=== PATIENT | female | born 1990 | race Caucasian/White ===

== ENCOUNTER 2021-12-15 20:49 | Emergency (ER) | payer SELFPAY ==
[~2021-12-15 20:49] MED LIST: AC325T PO; AGM875T PO; BENZ56AE TP; BUTA1TAB55 PO; CEPH-38 PO; CODE-54 PO; CPR500T PO; DCS100C PO; FERR-57 PO; FRS325T PO; IBUP-792 PO; Ibuprofen PO; ONDA8TAB13 PO; ONDA8TAB9 PO; PHEN200T27 PO; POLY119P PO; PREN1TAB71 PO
--- NOTE | 2021-12-15 21:17 | ED GU-Female ---
General Chief Complaint: OB < 20 WEEKS Stated Complaint: OB,ABNORMAL BLEEDING Nursing Triage Note: Pt states she is 5-6 weeks and has vaginal bleeding that started this afternoon and has increased over the past few hours. History of Present Illness Date Seen by Provider: Dec 15, 2021 Time Seen by Provider: 21:05 Initial Comments 31-year-old female is [id number], is here with complaints of vaginal bleeding which began today and became worse in the evening. Patient states that she is wearing a panty liner and has not changed it since earlier today. Patient denies cramping, fever, nausea and vomiting, diarrhea, hematuria, dysuria. Patient has not seen MEDICAL LABORATORY TECHNICIAN yet, and the only test she has done is grsk-kna-eygrthn drugstore tests. Allergies and Home Medications Allergies Coded Allergies: No Known Drug Allergies (Unverified , 10/06/11) Patient Home Medication List Home Medication List Reviewed: Yes Acetaminophen/Codeine (Tylenol W/Codeine #3 Tablet) 1 Tab Tablet, 1-2 TAB PO Q4H PRN for MODERATE TO SEVERE PAIN Prescribed by: PAULINA MARTINEZ on 02/07/14757 Benzocaine/Menthol (Dermoplast [place]) 56 Ml Aerosol, 0 ML TP UD PRN for PAIN Prescribed by: PAULINA MARTINEZ on 02/07/14757 Docusate Sodium (Colace) 100 Mg Cap, 100 MG PO BID Prescribed by: PAULINA MARTINEZ on 02/07/14757 Ferrous Sulfate (Feosol Tab) 325 Mg Tab, 325 MG PO DAILY@08 Prescribed by: PAULINA MARTINEZ on 02/07/14757 Vit/Fe Fumarate/Fa ( Vitamin Tablet) 1 Each Tablet, 1 EACH PO DAILY, (Reported) Entered as Reported by: MIGDALIA GONZALEZ on 01/31/14 1518 [Ibuprofen] 600 MG TAB, 600 MG PO Q6H Prescribed by: PAULINA MARTINEZ on 02/07/14 075 Review of Systems Review of Systems Constitutional: no symptoms reported EENTM: no symptoms reported Respiratory: no symptoms reported Cardiovascular: no symptoms reported Gastrointestinal: no symptoms reported : Yes LMP: Nov 07, 2021 Musculoskeletal: no symptoms reported Skin: no symptoms reported Psychiatric/Neurological: No Symptoms Reported Endocrine: No Symptoms Reported Past Dutjulz-Dwxwcu-Gikzru Hx Patient Social History Tobacco Use?: No Use of E-Cig and/or Vaping dev: No Substance use?: No Alcohol Use?: No Pt feels they are or have been: No Immunizations Up To Date Tetanus Booster (TDap): Less than 5yrs PED Vaccines UTD: No Past Medical History Reproductive Disorders: No Female Reproductive Disorders: Denies Sexually Transmitted Disease: No HIV/AIDS: No Family Medical History Patient reports no known family medical history. No Pertinent Family Hx Physical Exam Vital Signs Vital Signs - First Documented 12/15/21 21:09 Temp 36.8 Pulse 105 Resp 20 B/P (MAP) 149/88 (108) Pulse Ox 100 O2 Delivery Room Air Capillary Refill : Less Than 3 Seconds Height, Weight, BMI Height: 5'2.00" Weight: 145lbs. oz. 65.609804kz; BMI Method:Stated General Appearance: WD/WN, no apparent distress HEENT: PERRL/EOMI Cardiovascular: normal peripheral pulses, regular rate, rhythm Respiratory: chest non-tender, lungs clear Gastrointestinal: normal bowel sounds, non tender, soft Pelvic: normal external exam, normal adnexa, no cerv. motion tender, no masses, vaginal bleeding Back: normal inspection, no CVA tenderness, no vertebral tenderness Neurologic/Psychiatric: alert, normal mood/affect, oriented x 3 Skin: normal color Progress/Results/Core Measures Suspected Sepsis SIRS Temperature: Pulse: 105 Respiratory Rate: 20 Laboratory Tests 12/15/21 22:43: White Blood Count 8.5 Blood Pressure 149 /88 Mean: 108 Laboratory Tests 12/15/21 22:43: Creatinine 0.59L, Platelet Count 309, Total Bilirubin 0.2 Results/Orders Lab Results Laboratory Tests Test 12/15/21 22:43 Range/Units White Blood Count 8.5 4.3-11.0 10^3/uL Red Blood Count 4.56 3.80-5.11 10^6/uL Hemoglobin 13.8 11.5-16.0 g/dL Hematocrit 40 35-52 % Mean Corpuscular Volume 88 80-99 fL Mean Corpuscular Hemoglobin 30 25-34 pg Mean Corpuscular Hemoglobin Concent 34 32-36 g/dL Red Cell Distribution Width 12.6 10.0-14.5 % Platelet Count 309 130-400 10^3/uL Mean Platelet Volume 9.9 9.0-12.2 fL Immature Granulocyte % (Auto) 0 % Neutrophils (%) (Auto) 58 42-75 % Lymphocytes (%) (Auto) 32 12-44 % Monocytes (%) (Auto) 8 0-12 % Eosinophils (%) (Auto) 1 0-10 % Basophils (%) (Auto) 1 0-10 % Neutrophils # (Auto) 4.9 1.8-7.8 10^3/uL Lymphocytes # (Auto) 2.7 1.0-4.0 10^3/uL Monocytes # (Auto) 0.7 0.0-1.0 10^3/uL Eosinophils # (Auto) 0.1 0.0-0.3 10^3/uL Basophils # (Auto) 0.0 0.0-0.1 10^3/uL Immature Granulocyte # (Auto) 0.0 0.0-0.1 10^3/uL Urine Color YELLOW Urine Clarity SL CLOUDY Urine pH 7.0 5-9 Urine Specific [place] 1.020 1.016-1.022 Urine Protein NEGATIVE NEGATIVE Urine Glucose (UA) NEGATIVE NEGATIVE Urine Ketones NEGATIVE NEGATIVE Urine Nitrite NEGATIVE NEGATIVE Urine Bilirubin NEGATIVE NEGATIVE Urine Urobilinogen 1.0 < = 1.0 MG/DL Urine Leukocyte Esterase NEGATIVE NEGATIVE Urine RBC (Auto) 3+ H NEGATIVE Urine RBC >100 H /HPF Urine WBC RARE /HPF Urine Squamous Epithelial Cells 2-5 /HPF Urine Crystals NONE /LPF Urine Bacteria TRACE /HPF Urine Casts NONE /LPF Urine Mucus LARGE H /LPF Urine Culture Indicated NO Urine Test NEGATIVE NEGATIVE Sodium Level 142 135-145 MMOL/L Potassium Level 3.6 3.6-5.0 MMOL/L Chloride Level 106 98-107 MMOL/L Carbon Dioxide Level 25 21-32 MMOL/L Anion Gap 11 5-14 MMOL/L Blood Urea Nitrogen 11 7-18 MG/DL Creatinine 0.59 L 0.60-1.30 MG/DL Estimat Glomerular Filtration Rate 125 BUN/Creatinine Ratio 19 Glucose Level 107 H 70-105 MG/DL Calcium Level 9.6 8.5-10.1 MG/DL Corrected Calcium 8.5-10.1 MG/DL Total Bilirubin 0.2 0.1-1.0 MG/DL Aspartate Amino Transf (AST/SGOT) 24 5-34 U/L Alanine Aminotransferase (ALT/SGPT) 29 0-55 U/L Alkaline Phosphatase 52 40-136 U/L Total Protein 7.7 6.4-8.2 GM/DL Albumin 4.8 H 3.2-4.5 GM/DL Human Chorionic Gonadotropin, Quant < 5 <5 MIU/ML My Orders Orders - ELIA BROOKE MD Cbc With Automated Diff (12/15/21 22:09) Hcg,Quantitative (12/15/21 22:09) Comprehensive Metabolic Panel (12/15/21 22:09) Ua Culture If Indicated (12/15/21 22:11) Hcg,Qualitative Urine (12/16/21 00:09) Vital Signs/I&O 12/15/21 21:09 Temp 36.8 Pulse 105 Resp 20 B/P (MAP) 149/88 (108) Pulse Ox 100 O2 Delivery Room Air Capillary Refill : Less Than 3 Seconds Blood Pressure Mean: 108 Progress Note : Progress Note 1. VAGINAL BLEEDING: MENSTRUATION - CBC: Hb is stable - CMP: unremarkable - UA: RBC+ - Pt has not seen her [employer]BEST[employer] ABATEMENT TECHNICIAN yet, and she has only had an OTC positive test - Quantitative HCG is <5 - Urine Qualitative HCG: negative - Follow up with OB-HYDROGRAPHIC ENGINEER Departure Impression Primary Impression: Menstrual bleeding problem Disposition: 01 HOME, SELF-CARE Condition: Stable Departure-Patient Inst. Referrals: NO,LOCAL PHYSICIAN (PCP/Family) Primary Care Physician Patient Instructions: Menstruation, Menstrual Cramps Add. Discharge Instructions: - Quantitative HCG is <5 - Urine Qualitative HCG: negative - Follow up with OB-HYDROGRAPHIC ENGINEER All discharge instructions reviewed with patient and/or family. Voiced understanding. ELIA BROOKE MD Dec 15, 2021 21:17
[2021-12-15 22:57] LABS: BASOPHILS % (AUTO) 1 % (0-10); EOSINOPHILS # (AUTO) 0.1 10^3/uL (0.0-0.3); EOSINOPHILS % (AUTO) 1 % (0-10); HEMATOCRIT 40 % (35-52); HEMOGLOBIN 13.8 g/dL (11.5-16.0); LYMPHOCYTES # (AUTO) 2.7 10^3/uL (1.0-4.0); LYMPHOCYTES % (AUTO) 32 % (12-44); MEAN CORPUSCULAR HEMOGLOBIN 30 pg (25-34); MEAN CORPUSCULAR HGB CONC 34 g/dL (32-36); MEAN CORPUSCULAR VOLUME 88 fL (80-99); MEAN PLATELET VOLUME 9.9 fL (9.0-12.2); MONOCYTES # (AUTO) 0.7 10^3/uL (0.0-1.0); MONOCYTES % (AUTO) 8 % (0-12); NEUTROPHILS # (AUTO) 4.9 10^3/uL (1.8-7.8); NEUTROPHILS % (AUTO) 58 % (42-75); PLATELET COUNT 309 10^3/uL (130-400); WHITE BLOOD COUNT 8.5 10^3/uL (4.3-11.0)
[2021-12-15 23:12] LABS: BILIRUBIN,URINE NEGATIVE (NEGATIVE); CLARITY,URINE SL CLOUDY; COLOR,URINE YELLOW; GLUCOSE, URINE (UA) NEGATIVE (NEGATIVE); KETONES,URINE NEGATIVE (NEGATIVE); LEUKOCYTE ESTERASE ,URINE NEGATIVE (NEGATIVE); NITRITE,URINE NEGATIVE (NEGATIVE); PROTEIN,URINE NEGATIVE (NEGATIVE)
[2021-12-15 23:28] LABS: RBC,URINE >100 /HPF; WBC,URINE RARE /HPF
[2021-12-15 23:29] LABS: BACTERIA,URINE TRACE /HPF
[2021-12-15 23:40] LABS: BUN/CREATININE RATIO 19; CARBON DIOXIDE 25 MMOL/L (21-32); CHLORIDE 106 MMOL/L (98-107); CREATININE SERUM 0.59 MG/DL (0.60-1.30); GFR ESTIMATED 125; POTASSIUM 3.6 MMOL/L (3.6-5.0); SODIUM 142 MMOL/L (135-145)
[2021-12-15 23:41] LABS: ALANINE AMINOTRANSFERASE 29 U/L (0-55); ALBUMIN 4.8 GM/DL (3.2-4.5); ALKALINE PHOSPHATASE 52 U/L (40-136); BILIRUBIN,TOTAL 0.2 MG/DL (0.1-1.0); CALCIUM 9.6 MG/DL (8.5-10.1); GLUCOSE 107 MG/DL (70-105); TOTAL PROTEIN 7.7 GM/DL (6.4-8.2)
[2021-12-16 00:39] VITALS: BP 138/80
== END 2021-12-16 00:40 | disposition home or self-care (01) ==
LOC: EDUNIT# 20:49 → ER FS 20:51
DX: N93.9 Abnormal uterine and vaginal bleeding, unspecified (principal); Z28.310 Unvaccinated for COVID-19
CPT/HCPCS: 36415; 80053; 81000; 84702; 84703; 85025; 86900; 86901

== ENCOUNTER → 2022-08-01 | Outpatient (CLI) | payer MEDICAID ==
--- NOTE | 2022-08-01 12:17 | Diagnostic Imaging Report ---
INDICATION: Supervision of normal . Anatomy scan. TECHNIQUE: Multiple real-time grayscale images were obtained over the gravid uterus. COMPARISON: None FINDINGS: A single live intrauterine gestation is visualized in cephalic presentation. heart tones measure 144 bpm. The placenta is anterior and not low-lying. The ISAIAH appears normal although no dedicated measurements were performed. The cervical length measures 4.6 cm. The kidneys, bladder, ventricles, four-chamber heart, three-vessel cord, cord insertion, and spine are visualized and have a normal appearance. The stomach and profile are not well seen due to position. Views of the adnexa demonstrate no evidence of mass. Biometrical measurements are as follows: Biparietal 5.11 cm, age 21 weeks 4 days. Head circumference 19.70 cm, age 22 weeks 0 days. Abdominal circumference 15.38 cm, age 20 weeks 5 days. Femur length 3.56 cm, age 21 weeks 2 days. Sonographic estimate age: 21 weeks 3 days. Sonographic estimated date of delivery: 12/09/2022. Estimated Weight: 393 gm (+/- 58 gm). LMP percentile: 19%. heart rate: 144 beats per minute. number: 1 of 1. IMPRESSION: 1. Single live intrauterine gestation measuring 21 weeks 3 days with an estimated due date of 12/09/2022. These are within range of the clinical dates. 2. Suboptimal visualization of the stomach in profile due to position. The remainder of the anatomy is seen and has a normal appearance. Recommend followup as indicated. Dictated by: Dictated on workstation # [id number]
== END ==
LOC: RAD FS 08:50
PROVIDERS: ATTEND Nurse Practitioner Women's Health
DX: Z34.02 Encounter for supervision of normal first pregnancy, second trimester (principal); Z3A.21 21 weeks gestation of pregnancy
CPT/HCPCS: 76805

== ENCOUNTER → 2022-11-17 | Outpatient (CLI) | payer MEDICAID ==
--- NOTE | 2022-11-17 13:10 | Diagnostic Imaging Report ---
INDICATION: Evaluate biophysical profile. FINDINGS: Biophysical profile was performed. Overall biophysical profile score is normal 8/8. heart rate was recorded at 155 BPM. presentation is cephalic. Amniotic fluid index is 10.6 cm. IMPRESSION: Normal biophysical profile score of 8/8. Dictated by: Dictated on workstation # [id number]
== END ==
LOC: RAD 12:16
PROVIDERS: ATTEND Nurse Practitioner Women's Health
DX: Z33.1 Pregnant state, incidental (principal)
CPT/HCPCS: 76819

== ENCOUNTER 2022-11-30 09:56 | Inpatient (IN) | payer MEDICAID ==
[2022-11-30] VITALS (52 sets, daily range): BP systolic 61–129; BP diastolic 35–81
[2022-11-30] MEDS ORDERED: AMPICILLIN (IV) 2,000 MG in NS (IVPB) 50 ML 50 ML IV SCH (10:13)
[2022-11-30] MEDS ORDERED: MINERAL OIL 30 ML UDC TOP PRN (10:15)
[2022-11-30] MEDS ORDERED: LACTATED RINGERS 1,000 ML IV ONE ×2 (10:16→13:45)
--- NOTE | 2022-11-30 10:34 | History & Physical-OB ---
OB - Chief Complaint & HPI Date/Time Date of Admission: Date of Admission: Nov 30, 2022 at 09:56 Date seen by a Provider: Nov 30, 2022 Time Seen by a Provider: 09:30 Chief Complaint/History OB-Reason for Admission/Chief: Onset of Labor Hx : 3 Hx Para: 2 Expected Date of Delivery: Dec 08, 2022 Gestational Age in Weeks: 38 Gestational Age in Days: 6 Indication for induction: medical complication (gestational diabetes) Admission Nurse Assessment Rev: Yes Other O+ GBS + RImm Hep b/c neg HIV neg +GDMA2 Allergies and Home Medications Allergies Coded Allergies: No Known Drug Allergies (Unverified , 10/06/11) Patient Home Medication List Home Medication List Reviewed: Yes Acetaminophen/Codeine (Tylenol W/Codeine #3 Tablet) 1 Tab Tablet, 1-2 TAB PO Q4H PRN for MODERATE TO SEVERE PAIN Prescribed by: PAULINA MARTINEZ on 02/07/14757 Last Action: Reviewed Benzocaine/Menthol (Dermoplast [place]) 56 Ml Aerosol, 0 ML TP UD PRN for PAIN Prescribed by: PAULINA MARTINEZ on 02/07/14757 Last Action: Reviewed Docusate Sodium (Colace) 100 Mg Cap, 100 MG PO BID Prescribed by: PAULINA MARTINEZ on 02/07/14757 Last Action: Reviewed Ferrous Sulfate (Feosol Tab) 325 Mg Tab, 325 MG PO DAILY@08 Prescribed by: PAULINA MARTINEZ on 02/07/14757 Last Action: Reviewed Glyburide (Glyburide) 2.5 Mg Tablet, 2.5 MG PO DAILY, (Reported) Entered as Reported by: JACK MOELLER on 11/30/221758 Last Action: New Order Vit/Fe Fumarate/Fa ( Vitamin Tablet) 1 Each Tablet, 1 EACH PO DAILY, (Reported) Entered as Reported by: MIGDALIA GONZALEZ on 01/31/14 151 Last Action: Reviewed [Ibuprofen] 600 MG TAB, 600 MG PO Q6H Prescribed by: PAULINA MARTINEZ on 02/07/14757 Last Action: Reviewed OB - History Hx of Present Care: Yes Ultrasounds: Normal mid trimester US Obstetrical Complications: Gestational Diabetes Medical Complications: None Information Induced Hypertension: No Maternal Gestational Diabetes: Yes Hemorrhage: No Obstetrical History Hx : 3 Hx Para: 2 Hx # Term Pregnancies: 2 Hx # Pregnancies: 0 Number of Living Children: 2 Hx Termination: No Hx Multiple Gestation: No Hx Ectopic : No Hx Stillbirth: No Hx Complication: No Hx Induced Hypertens: No Hx Maternal Gestational Diabet: No Hx Hemorrhage: No Delivery History Hx Dystocia: No Hx Forceps Assisted Delivery: No Hx Vacuum Extraction Assisted: No Hx Placenta Abnormality: No Hx Distress: No Hx Large For Gestational Age I: No Hx Small for Gestational Age I: No Hx Section: No Hx Vaginal Delivery Post C-Sec: No Hx Blood Disorders: No Adverse Rxn to Tranfusion: No Patient Past Medical History gestational diabetes Social History/Family History Alcohol Use: Denies Use Smoking Cessation: Never smoker Immunizations Influenza Vaccine Up-to-Date: Yes; Up-to-Date Hepatitis A: Yes Hepatitis B: Yes Tetanus Booster (TDap): Less than 5yrs OB - Admission Exam Physical Exam HEENT: NCAT Heart: Rhythm Normal Lungs: Clear Abdomen: Gravid Extremities: Normal Reflexes: Normal Cervical Dilatation: 4cm Effacement: 50% Station: -2 Membranes: Intact Heart Rate: 140's Accelerations: Accelerations Present Decelerations: No Decelerations Short Term Variability: Present Wrapper Sheeter Variability: Average (6-25) Contractions on Admission: 6-10 Minutes Apart Intensity: Mild OB - Assessment/Plan/Diagnosis Assessment Assessment: active labor, group B positive strep Admission Dx IUP at 38w3d GDMA2 GBS+ Labor Admission Status: Inpatient Order (span 2 midnights) Reason for Inpatient Admission: IUP @ 38w6d GDMA2 GBS+ Labor Plan Plan: Expectant Management Other Plan IV ATBx LENO GEORGES DO Nov 30, 2022 10:34
[2022-11-30 10:52] LABS: BASOPHILS % (AUTO) 0 % (0-10); EOSINOPHILS # (AUTO) 0.1 10^3/uL (0.0-0.3); EOSINOPHILS % (AUTO) 1 % (0-10); HEMATOCRIT 35 % (35-52); HEMOGLOBIN 11.6 g/dL (11.5-16.0); LYMPHOCYTES # (AUTO) 2.5 10^3/uL (1.0-4.0); LYMPHOCYTES % (AUTO) 21 % (12-44); MEAN CORPUSCULAR HEMOGLOBIN 30 pg (25-34); MEAN CORPUSCULAR HGB CONC 34 g/dL (32-36); MEAN CORPUSCULAR VOLUME 89 fL (80-99); MONOCYTES # (AUTO) 0.9 10^3/uL (0.0-1.0); MONOCYTES % (AUTO) 7 % (0-12); NEUTROPHILS # (AUTO) 8.6 10^3/uL (1.8-7.8); NEUTROPHILS % (AUTO) 71 % (42-75); PLATELET COUNT 289 10^3/uL (130-400); WHITE BLOOD COUNT 12.1 10^3/uL (4.3-11.0)
[2022-11-30] MEDS: LACTATED RINGERS 1,000 ML IV SCH ×2 (10:52→16:57)
[2022-11-30] MEDS ORDERED: fentaNYL 2 mcg/ml BUPIVA 0.125 100 ML ONE (13:35)
[2022-11-30] MEDS ORDERED: fentaNYL INJ 100 MCG/2 ML AMP ONE (13:41)
[2022-11-30] MEDS ORDERED: BUPIVACAINE 0.25% 10 ML VIAL ONE (13:41)
[2022-11-30] MEDS ORDERED: NALOXONE 0.4 MG/ML 1 ML (NARCAN) VIAL IV PRN ×2 (13:45→23:00)
[2022-11-30] MEDS ORDERED: fentaNYL 2 mcg/ml BUPIVA 0.125 100 ML EPI SCH (13:45)
[2022-11-30] MEDS ORDERED: ONDANSETRON 4 MG/2 ML (SDV) Z0FRAN IV PRN (13:45)
[2022-11-30] MEDS ORDERED: CATHETER FLUSH 10 ML SYR IV PRN (13:45)
[2022-11-30] MEDS ORDERED: diphenhydrAMINE 50 MG/ML INJ (BENADRYL) IV PRN (13:45)
[2022-11-30] MEDS: AMPICILLIN (IV) 1,000 MG in NS (IVPB) 50 ML 50 ML IV SCH ×3 (14:50→23:41)
--- NOTE | 2022-11-30 17:25 | OB Triage Report ---
Standard Progress Note Progress Notes/Assess & Plan Date Seen by a Provider: Nov 30, 2022 Time Seen by a Provider: 17:10 Expected Date of Delivery: Dec 08, 2022 Gestational Age in Weeks: 38 Gestational Age in Days: 6 LMP/DERRELL Comment: Pt comfortable with epidural FHR 130 CAT I CVX /-2 AROM large amount bloody fluid TOCOs Q3min 2doses ATBX in BS 85 LENO GEORGES DO Nov 30, 2022 17:25
[2022-11-30] MEDS ORDERED: GLBR2.5T PO (17:59)
[2022-11-30] MEDS ORDERED: D5 LR 1,000 ML IV SOLN 1,000 ML IV ONE (18:09)
[2022-11-30] MEDS ORDERED: D5 LR 1,000 ML IV SOLN 1,000 ML IV SCH (18:15)
[2022-11-30] MEDS ORDERED: OXYTOCIN PRE-MIX DRIP 500 ML IV ONE (21:27)
[2022-11-30] MEDS ORDERED: OXYTOCIN PRE-MIX DRIP 500 ML IV SCH ×2 (21:45→23:00)
[2022-11-30] MEDS: CATHETER FLUSH 10 ML SYR IV SCH ×2 (21:52→21:53)
--- NOTE | 2022-11-30 22:51 | OB Labor & Delivery Record ---
Vag Delivery Note Vag Delivery Note Date of Delivery: 11/30/22 Preoperative Diagnosis: Isabel Chambers is a (30 /Para 3 / 2,Gestational Age (wks)[id number] Contractions and a history of gestational diabetes class A2 Postoperative Diagnosis: Same Surgeon: LENO GEORGES Coverage Analyst: [] Anesthesia:Epidural Delivery Type: Spontaneous vaginal delivery Findings: [] Liveborn female infant, apgars 8/9, weight Pending Lacerations: Left Labial Intact placenta with 3 vessel cord. No nuchal cord, body cord or shoulder dystocia Estimated Blood Loss: 150 ml Complications: None Condition: Stable Description of Procedure: The patient is a 32 year old female who presented With complaint of contractions at 38 weeks 6 days EGA. was complicated by gestational diabetes class A2.. She was admitted and informed consent was obtained. Her labor course was Uneventful. She progressed to complete dilatation and began to push. Patient was complete and pushed for approximately 10 minutes to deliver the head in straight OA position and restituted to BRYANT. There was a nuchal cord x2 which was loose and reduced. The anterior shoulder (right) delivered followed by the posterior shoulder (left) followed by the rest the . The infant was placed on the maternal abdomen. After 60 seconds of delayed cord clamping the cord was clamped and then cut. The placenta delivered spontaneously intact with a three-vessel cord. The cervix, vagina, periurethral and perineal areas were all inspected. There is a left labial laceration which was repaired with 3-0 Rapide in a single interrupted stitch. The quantitative blood loss was 150 cc. The mother and tolerated the procedure well and a recovering in the room in stable condition. All sponge, instrument and needle counts were correct x2 Vitals - Labs Vital Signs - I&O Vital Signs Date Time Temp Pulse Resp B/P (MAP) Pulse Ox O2 Delivery O2 Flow Rate FiO2 11/30/22 21:45 85 18 106/58 (74) Room Air 11/30/22 21:30 102 18 109/61 (77) Room Air 11/30/22 21:15 90 18 110/64 (79) Room Air 11/30/22 21:00 102 18 109/61 (77) Room Air 11/30/22 20:45 95 18 112/61 (78) Room Air 11/30/22 20:30 95 18 112/61 (78) Room Air 11/30/22 20:15 92 18 105/66 (79) Room Air 11/30/22 20:00 92 18 105/66 (79) Room Air 11/30/22 19:45 102 18 106/66 (79) Room Air 11/30/22 19:30 36.9 106 18 107/64 (78) 98 Room Air 11/30/22 18:58 103 114/70 (85) 11/30/22 18:42 94 102/57 (72) 11/30/22 18:27 95 97/55 (69) 11/30/22 18:13 93 102/57 (72) 11/30/22 17:57 97 97/53 (68) 11/30/22 17:45 93 116/58 (77) 11/30/22 17:26 86 111/68 (82) 11/30/22 17:19 37.0 11/30/22 17:15 95 118/74 (89) 99 Room Air 11/30/22 17:10 98 99 Room Air 11/30/22 17:05 88 99 Room Air 11/30/22 17:00 98 100 Room Air 11/30/22 16:55 85 115/66 (82) 98 Room Air 11/30/22 16:50 85 98 Room Air 11/30/22 16:45 91 99 Room Air 11/30/22 16:40 108 102/65 (77) 100 Room Air 11/30/22 16:35 100 99 Room Air 11/30/22 16:30 91 99 Room Air 11/30/22 16:28 88 111/66 (81) 11/30/22 16:25 110 99 Room Air 11/30/22 16:20 81 98 Room Air 11/30/22 16:15 79 98 Room Air 11/30/22 16:10 92 106/69 (81) 98 Room Air 11/30/22 16:05 81 98 Room Air 11/30/22 16:00 103 98 Room Air 11/30/22 15:57 84 106/66 (79) 11/30/22 15:55 86 99 Room Air 11/30/22 15:50 89 98 Room Air 11/30/22 15:45 90 98 Room Air 11/30/22 15:40 88 106/65 (79) 98 Room Air 11/30/22 15:35 84 98 Room Air 11/30/22 15:30 82 98 Room Air 11/30/22 15:25 83 107/67 (80) 98 Room Air 11/30/22 15:20 86 115/68 (84) 99 Room Air 11/30/22 15:15 91 98/61 (73) 100 Room Air 11/30/22 15:10 82 103/61 (75) 99 Room Air 11/30/22 15:05 89 97/59 (72) 99 Room Air 11/30/22 15:00 85 112/65 (81) 100 Room Air 11/30/22 14:55 86 116/69 (85) 99 Room Air 11/30/22 14:50 83 108/65 (79) 100 Room Air 11/30/22 14:45 86 110/69 (83) 100 Room Air 11/30/22 14:40 82 105/65 (78) 99 Room Air 11/30/22 14:35 86 110/68 (82) 99 Room Air 11/30/22 14:31 96 99 Room Air 11/30/22 14:28 90 115/69 (84) 11/30/22 14:25 91 109/70 (83) 100 Room Air 11/30/22 14:22 91 112/68 (83) 11/30/22 14:19 82 109/67 (81) 99 Room Air 11/30/22 14:16 74 105/60 (75) 11/30/22 14:15 83 101/56 (71) 91 Room Air 11/30/22 14:13 48 61/35 (44) 11/30/22 14:11 91 74/38 (50) 84 Room Air 11/30/22 14:08 127 113/71 (85) 98 Room Air 11/30/22 14:06 105 120/70 (87) 99 Room Air 11/30/22 14:01 108 122/79 (93) 99 Room Air 11/30/22 13:56 103 125/77 (93) 11/30/22 13:51 106 124/77 (93) 99 Room Air 11/30/22 09:50 37.2 106 18 129/81 (97) 98 Room Air Labs Laboratory Tests 11/30/22 10:40: White Blood Count 12.1H, Red Blood Count 3.89, Hemoglobin 11.6, Hematocrit 35, Mean Corpuscular Volume 89, Mean Corpuscular Hemoglobin 30, Mean Corpuscular Hemoglobin Concent 34, Red Cell Distribution Width 13.2, Platelet Count 289, Mean Platelet Volume 10.0, Immature Granulocyte % (Auto) 1, Neutrophils (%) (Auto) 71, Lymphocytes (%) (Auto) 21, Monocytes (%) (Auto) 7, Eosinophils (%) ( Auto) 1, Basophils (%) (Auto) 0, Neutrophils # (Auto) 8.6H, Lymphocytes # (Auto) 2.5, Monocytes # (Auto) 0.9, Eosinophils # (Auto) 0.1, Basophils # (Auto) 0.0, Immature Granulocyte # (Auto) 0.1, Glucose Level 73, Syphilis Total Antibody Negative 11/30/22 13:01: Glucometer 116H 11/30/22 15:01: Glucometer 71 11/30/22 17:01: Glucometer 85 11/30/22 18:03: Glucometer 66L 11/30/22 18:53: Glucometer 81 11/30/22 20:12: Glucometer 88 11/30/22 21:20: Glucometer 89 LENO GEORGES DO Nov 30, 2022 22:51
[2022-11-30] MEDS ORDERED: MEASLES,MUMPS,RUBELLA 1 EA INJ SQ ONE (23:00)
[2022-11-30] MEDS ORDERED: BENZOCAINE/MENTHOL (DERMOPLAST) 56 ML CAN TP PRN (23:00)
[2022-11-30] MEDS ORDERED: DIBUCAINE 1% OINTMENT 28 GM TUBE TOP PRN (23:00)
[2022-11-30] MEDS ORDERED: TETANUS,DIPTH,PERTUSS P/F (BOOSTRIX) 0.5 ML VIAL IM ONE (23:00)
[2022-11-30] MEDS: WITCH HAZEL(TUCKS) 40 EA JAR TOP PRN (23:22)
[2022-11-30] MEDS: ACETAMINOPHEN 500 MG TABLET PO PRN (23:26)
[2022-11-30] MEDS: IBUPROFEN 800 MG (MOTRIN) TAB PO PRN (23:27)
[2022-12-01] VITALS (7 sets, daily range): BP systolic 100–113; BP diastolic 58–73
[2022-12-01 05:50] LABS: BASOPHILS % (AUTO) 0 % (0-10); EOSINOPHILS # (AUTO) 0.1 10^3/uL (0.0-0.3); EOSINOPHILS % (AUTO) 1 % (0-10); HEMATOCRIT 30 % (35-52); LYMPHOCYTES # (AUTO) 2.7 10^3/uL (1.0-4.0); LYMPHOCYTES % (AUTO) 24 % (12-44); MEAN CORPUSCULAR HEMOGLOBIN 30 pg (25-34); MEAN CORPUSCULAR HGB CONC 34 g/dL (32-36); MEAN CORPUSCULAR VOLUME 90 fL (80-99); MEAN PLATELET VOLUME 10.3 fL (9.0-12.2); MONOCYTES % (AUTO) 9 % (0-12); NEUTROPHILS # (AUTO) 7.5 10^3/uL (1.8-7.8); NEUTROPHILS % (AUTO) 66 % (42-75); PLATELET COUNT 249 10^3/uL (130-400); WHITE BLOOD COUNT 11.4 10^3/uL (4.3-11.0)
[2022-12-01] MEDS ORDERED: CATHETER FLUSH 10 ML SYR IV SCH (06:00)
[2022-12-01] MEDS: DOCUSATE SODIUM 100 MG CAPSULE PO SCH ×2 (08:10→19:23)
[2022-12-01] MEDS: PRENATAL VITAMIN 1 EA TAB PO SCH (08:11)
[2022-12-01] MEDS: FERROUS SULF 325 MG (IRON) TAB PO SCH (08:11)
[2022-12-01] MEDS: IBUPROFEN 800 MG (MOTRIN) TAB PO PRN ×2 (08:14→19:23)
[2022-12-01] MEDS: ACETAMINOPHEN 500 MG TABLET PO PRN ×3 (08:15→20:22)
--- NOTE | 2022-12-01 08:31 | Postpartum Progress Note ---
Note Note Day #1 Subjective: Patient is without complaints. Ambulating, voiding. Tolerating a regular diet without nausea or vomiting. Normal lochia. Pain is well controlled with oral pain medications.Breast-feeding Objective: Vital signs stable afebrile Physical Exam: General - Alert and oriented, no apparent distress Breast symmetrical no erythema or edema or engorgement Abdomen - Soft, appropriately tender to palpation, non-distended, fundus firm at umbilicus Lochia minimal Extremities - no edema, negative Iman's bilaterally Assessment: [] post- day # 1, status post vaginal delivery. Recovering well, hemodynamically stable Plan: Routine care. Encourage breast feeding. Encourage ambulation. Ferrous sulfate supplementation. Plan for discharge [] Vitals - Labs Vital Signs - I&O Vital Signs Date Time Temp Pulse Resp B/P (MAP) Pulse Ox O2 Delivery O2 Flow Rate FiO2 12/01/22 05:38 36.9 69 18 104/60 (75) 12/01/22 01:03 37.0 87 18 106/58 (74) 12/01/22 00:22 37.0 80 18 100/61 (74) Room Air 11/30/22 23:30 37.0 89 18 106/59 (75) Room Air 11/30/22 23:00 36.9 96 20 108/68 (81) Room Air 11/30/22 22:00 83 18 100/59 (73) Room Air 11/30/22 21:45 85 18 106/58 (74) Room Air 11/30/22 21:30 102 18 109/61 (77) Room Air 11/30/22 21:15 90 18 110/64 (79) Room Air 11/30/22 21:00 102 18 109/61 (77) Room Air 11/30/22 20:45 95 18 112/61 (78) Room Air 11/30/22 20:30 95 18 112/61 (78) Room Air 11/30/22 20:15 92 18 105/66 (79) Room Air 11/30/22 20:00 92 18 105/66 (79) Room Air 11/30/22 19:45 102 18 106/66 (79) Room Air 11/30/22 19:30 36.9 106 18 107/64 (78) 98 Room Air 11/30/22 18:58 103 114/70 (85) 11/30/22 18:42 94 102/57 (72) 11/30/22 18:27 95 97/55 (69) 11/30/22 18:13 93 102/57 (72) 11/30/22 17:57 97 97/53 (68) 11/30/22 17:45 93 116/58 (77) 11/30/22 17:26 86 111/68 (82) 11/30/22 17:19 37.0 11/30/22 17:15 95 118/74 (89) 99 Room Air 11/30/22 17:10 98 99 Room Air 11/30/22 17:05 88 99 Room Air 11/30/22 17:00 98 100 Room Air 11/30/22 16:55 85 115/66 (82) 98 Room Air 11/30/22 16:50 85 98 Room Air 11/30/22 16:45 91 99 Room Air 11/30/22 16:40 108 102/65 (77) 100 Room Air 11/30/22 16:35 100 99 Room Air 11/30/22 16:30 91 99 Room Air 11/30/22 16:28 88 111/66 (81) 11/30/22 16:25 110 99 Room Air 11/30/22 16:20 81 98 Room Air 11/30/22 16:15 79 98 Room Air 11/30/22 16:10 92 106/69 (81) 98 Room Air 11/30/22 16:05 81 98 Room Air 11/30/22 16:00 103 98 Room Air 11/30/22 15:57 84 106/66 (79) 11/30/22 15:55 86 99 Room Air 11/30/22 15:50 89 98 Room Air 11/30/22 15:45 90 98 Room Air 11/30/22 15:40 88 106/65 (79) 98 Room Air 11/30/22 15:35 84 98 Room Air 11/30/22 15:30 82 98 Room Air 11/30/22 15:25 83 107/67 (80) 98 Room Air 11/30/22 15:20 86 115/68 (84) 99 Room Air 11/30/22 15:15 91 98/61 (73) 100 Room Air 11/30/22 15:10 82 103/61 (75) 99 Room Air 11/30/22 15:05 89 97/59 (72) 99 Room Air 11/30/22 15:00 85 112/65 (81) 100 Room Air 11/30/22 14:55 86 116/69 (85) 99 Room Air 11/30/22 14:50 83 108/65 (79) 100 Room Air 11/30/22 14:45 86 110/69 (83) 100 Room Air 11/30/22 14:40 82 105/65 (78) 99 Room Air 11/30/22 14:35 86 110/68 (82) 99 Room Air 11/30/22 14:31 96 99 Room Air 11/30/22 14:28 90 115/69 (84) 11/30/22 14:25 91 109/70 (83) 100 Room Air 11/30/22 14:22 91 112/68 (83) 11/30/22 14:19 82 109/67 (81) 99 Room Air 11/30/22 14:16 74 105/60 (75) 11/30/22 14:15 83 101/56 (71) 91 Room Air 11/30/22 14:13 48 61/35 (44) 11/30/22 14:11 91 74/38 (50) 84 Room Air 11/30/22 14:08 127 113/71 (85) 98 Room Air 11/30/22 14:06 105 120/70 (87) 99 Room Air 11/30/22 14:01 108 122/79 (93) 99 Room Air 11/30/22 13:56 103 125/77 (93) 11/30/22 13:51 106 124/77 (93) 99 Room Air 11/30/22 09:50 37.2 106 18 129/81 (97) 98 Room Air I & O 12/01/22 07:00 Intake Total 4264.8 ml Balance 4264.8 ml Labs Laboratory Tests 11/30/22 10:40: White Blood Count 12.1H, Red Blood Count 3.89, Hemoglobin 11.6, Hematocrit 35, Mean Corpuscular Volume 89, Mean Corpuscular Hemoglobin 30, Mean Corpuscular Hemoglobin Concent 34, Red Cell Distribution Width 13.2, Platelet Count 289, Mean Platelet Volume 10.0, Immature Granulocyte % (Auto) 1, Neutrophils (%) (Auto) 71, Lymphocytes (%) (Auto) 21, Monocytes (%) (Auto) 7, Eosinophils (%) (Auto) 1, Basophils (%) (Auto) 0, Neutrophils # (Auto) 8.6H, Lymphocytes # (Auto) 2.5, Monocytes # (Auto) 0.9, Eosinophils # (Auto) 0.1, Basophils # (Auto) 0.0, Immature Granulocyte # (Auto) 0.1, Glucose Level 73, Syphilis Total Antibody Negative 11/30/22 13:01: Glucometer 116H 11/30/22 15:01: Glucometer 71 11/30/22 17:01: Glucometer 85 11/30/22 18:03: Glucometer 66L 11/30/22 18:53: Glucometer 81 11/30/22 20:12: Glucometer 88 11/30/22 21:20: Glucometer 89 12/01/22 05:20: White Blood Count 11.4H, Red Blood Count 3.32L, Hemoglobin 10.0L, Hematocrit 30L , Mean Corpuscular Volume 90, Mean Corpuscular Hemoglobin 30, Mean Corpuscular Hemoglobin Concent 34, Red Cell Distribution Width 12.8, Platelet Count 249, Mean Platelet Volume 10.3, Immature Granulocyte % (Auto) 0, Neutrophils (%) (Auto) 66, Lymphocytes (%) (Auto) 24, Monocytes (%) (Auto) 9, Eosinophils (%) (Auto) 1, Basophils (%) (Auto) 0, Neutrophils # (Auto) 7.5, Lymphocytes # (Auto) 2.7, Monocytes # (Auto) 1.0, Eosinophils # (Auto) 0.1, Basophils # (Auto) 0.0, Immature Granulocyte # (Auto) 0.1 12/01/22 05:33: Glucometer 97 LENO GEORGES DO Dec 01, 2022 08:31
--- NOTE | 2022-12-01 13:09 | Anesthesia-Regional Post-Op ---
Regional Patient Condition Mental Status: Alert, Oriented x3 Circulation: Same as Pre-Op Headache: Absent Sensation: Full Recovery Motor Block: Absent Post Op Complications Complications None Follow Up Care/Instructions Patient Instructions None needed. Anesthesia/Patient Condition Patient is doing well, no complaints, stable vital signs, no apparent adverse anesthesia problems. No complications reported per nursing. FRANSISCO WADE CRNA Dec 01, 2022 13:09
[2022-12-02] MEDS: ACETAMINOPHEN 500 MG TABLET PO PRN ×2 (02:05→08:26)
[2022-12-02 02:10] VITALS: BP 107/63
[2022-12-02] MEDS: IBUPROFEN 800 MG (MOTRIN) TAB PO PRN (04:44)
[2022-12-02] MEDS: DOCUSATE SODIUM 100 MG CAPSULE PO SCH (08:26)
[2022-12-02] MEDS: FERROUS SULF 325 MG (IRON) TAB PO SCH (08:26)
[2022-12-02] MEDS: PRENATAL VITAMIN 1 EA TAB PO SCH (08:26)
[2022-12-02 08:27] VITALS: BP 103/70
--- NOTE | 2022-12-02 08:54 | Postpartum Progress Note ---
Note Note Day # 2 Subjective: Patient is without complaints. Ambulating, voiding. Tolerating a regular diet without nausea or vomiting. Normal lochia. Pain is well controlled with oral pain medications. Breast-feeding. [] Objective: VSS AF Physical Exam: General - Alert and oriented, no apparent distress Breast symmetrical no erythema or edema or engorgement Abdomen - Soft, appropriately tender to palpation, non-distended, fundus firm at umbilicus Lochia minimal Extremities - no edema, negative Iman's bilaterally Assessment: [] post- day # 2 status post [] vaginal delivery. Recovering well, hemodynamically stable Plan: Routine care. Encourage breast feeding. Encourage ambulation. Ferrous sulfate supplementation. Plan for discharge [] Vitals - Labs Vital Signs - I&O Vital Signs Date Time Temp Pulse Resp B/P (MAP) Pulse Ox O2 Delivery O2 Flow Rate FiO2 12/02/22 08:27 36.6 76 18 103/70 (81) 97 Room Air 12/02/22 02:10 36.8 76 18 107/63 (78) 97 Room Air 12/01/22 19:20 37.1 77 18 108/73 (85) 98 Room Air 12/01/22 18:00 36.7 81 18 110/65 (80) 98 Room Air 12/01/22 13:48 36.3 86 18 109/72 (84) 98 Room Air Labs Laboratory Tests 12/02/22 07:33: Glucometer 99 LENO GEORGES DO Dec 02, 2022 08:54
[2022-12-02] MEDS: WITCH HAZEL(TUCKS) 40 EA JAR TOP PRN (10:13)
== END 2022-12-02 11:23 | disposition home or self-care (01) | DRG 807 ==
LOC: LDRP 09:56
PROVIDERS: ADMIT Obstetrics & Gynecology; ATTEND Obstetrics & Gynecology
PROC: 10E0XZZ Delivery of Products of Conception, External Approach (ICD-10-PCS; principal; 2022-11-30)
PROC: 0UQMXZZ Repair Vulva, External Approach (ICD-10-PCS; 2022-11-30)
DX: O24.425 Gestational diabetes mellitus in childbirth, controlled by oral hypoglycemic drugs (principal); Z3A.38 38 weeks gestation of pregnancy; O99.824 Streptococcus B carrier state complicating childbirth; O69.81X0 Labor and delivery complicated by cord around neck, without compression, not applicable or unspecified; O70.0 First degree perineal laceration during delivery; Z37.0 Single live birth
CPT/HCPCS: 36415; 82947; 85025; 86780; 86850; 86900; 86901

== ENCOUNTER → 2022-12-20 | Outpatient (CLI) | payer MEDICAID ==
[~2022-12-20] MED LIST changes: +GLBR2.5T PO
== END ==
LOC: LAB FS 09:49
PROVIDERS: ATTEND Obstetrics & Gynecology
DX: Z86.32 Personal history of gestational diabetes (principal)
CPT/HCPCS: 36415; 82947